=== PATIENT | male | born 1995 | race Caucasian/White ===

== ENCOUNTER 2021-03-02 09:12 | Emergency (ER) | payer OTHER, SELFPAY ==
--- NOTE | ~2021-03-02 | XR_ITS ---
EXAMINATION: XR FINGER, LEFT CLINICAL INFORMATION: Crush injury and laceration COMPARISON: None TECHNIQUE: Three views of the left second finger. FINDINGS: Bone alignment is normal. No fracture or dislocation is seen. There is soft tissue swelling. No radiopaque soft tissue foreign body is seen. There is a small amount of air in the soft tissues adjacent to the distal aspect of the volar proximal phalanx XR/XR finger LT min 2V IMPRESSION: No fracture. Diffuse soft tissue swelling. Small amount of air in the soft tissues adjacent to the proximal phalanx.
[2021-03-02 09:18] VITALS: BP 133/61; PULSE 85; RESP 18; TEMP 36.1; O2SAT 100; BMI 22.8
[2021-03-02] MEDS: Diphth,Pertus(ACell),Tet Adult 0.5 ML SYRINGE IM (09:30)
[2021-03-02] MEDS: Lidocaine HCl 2 % MPF 5 ML VIAL SUBCUT ×2 (09:31→10:37)
--- NOTE | 2021-03-02 11:48 | ED.EXTPRO ---
HPI - Extremity Problem General Chief complaint: Extremity Injury, Upper Stated complaint: lt index finger injury Time Seen by Provider: 03/02/21 09:17 Source: patient Mode of arrival: ambulatory Limitations: no limitations History of Present Illness HPI Narrative: 25-year-old male here with complaints of left index finger after it was crushed by a weight at the gym. The patient tells me he was doing some lifting when the bar was uneven and a heavy weight fell on his left hand. He reports pain and swelling to the left index finger with a laceration. No fevers or chills. No sensation change. Tetanus status unknown Related Data Previous Rx's Medication Instructions Recorded amoxicillin 875 mg-potassium 1 tab PO BID #14 tab 03/02/21 clavulanate 125 mg tablet (Augmentin) ibuprofen 600 mg tablet 600 mg PO Q8H PRN #20 tab 03/02/21 oxycodone 5 mg tablet 5 mg PO Q8H PRN #8 tab 03/02/21 oxycodone 5 mg tablet 5 mg PO Q8H PRN #8 tab 03/02/21 Allergies Allergy/AdvReac Type Severity Reaction Status Date / Time nut - unspecified [NUTS] Allergy Intermediate ANAPHYLAXIS Verified 03/02/21 09:23 Review of Systems Review of Systems: Yes all other systems are reviewed and are negative Constitutional: Constitutional: Reports no additional constitutional complaints, Denies body ache(s), Denies chills, Denies fever(s), Denies headache(s) and Denies weakness Eyes: Eyes: Reports no additional eye complaints and Denies change in vision ENT: Reports system reviewed and no additional complaints, except as documented, Denies dizziness, Denies headache(s), Denies nasal congestion, Denies nasal discharge and Denies neck pain Cardiovascular: Cardiovascular: Reports no additional cardiovascular complaints, Denies chest pain, Denies leg edema and Denies dyspnea Respiratory: Respiratory: Reports no additional respiratory complaints, Denies cough and Denies dyspnea Gastrointestinal: Gastrointestinal: Reports no additional gastrointestinal complaints, Denies abdominal pain, Denies diarrhea, Denies nausea and Denies vomiting Genitourinary: Genitourinary: Denies urinary incontinence Musculoskeletal: Musculoskeletal: Reports no additional musculoskeletal complaints, Denies back pain, Reports arthralgias, Denies joint swelling, Denies neck pain, Denies numbness and Denies tingling Integumentary/Breasts: Skin/Breast: Reports system reviewed and no additional complaints, except as docu and Denies rash Comments: Laceration Neurologic: Reports system reviewed and no additional complaints, except as documented, Denies Abnormal speech present, Denies dizziness, Denies headache(s), Denies numbness, Denies tingling and Denies weakness PMFSH Past Medical History Attestation statement: The following information was validated with the patient. Source: old records reviewed and nursing notes reviewed Medical History No known health problems Social History Social History Advance Directives: No Advance Directives Information Provided: No Physical Exam Vital Signs: Vital Signs: Last Vital Signs Temp 97 F 03/02/21 09:18 Pulse 85 03/02/21 09:18 Resp 18 03/02/21 09:18 BP 133/61 03/02/21 09:18 Pulse Ox 100 03/02/21 09:18 Body Mass Index 22.8 Const: General: cooperative, healthy appearing, comfortable and no acute distress Orientation/consciousness: patient oriented x3 Limitations: no limitations HENMT: Head: Yes normal to inspection Ears: hearing grossly normal bilaterally General nose exam: Normal external nose present Face and sinus: Yes normal facial exam Mouth: Normal oral and palatal mucosa present Throat: Yes posterior oropharynx normal Eyes: General: appearance normal, both eyes and all related structures Pupils: Equal, round and reactive pupils present Neck: Neck: Yes normal visual inspection Chest: Chest palpation & inspection: normal inspection of the chest Resp: Effort & Inspection: normal respiratory effort Auscultation: clear to auscultation bilaterally Cardio: Rate: regular rate Rhythm: regular rhythm Peripheral pulses: Peripheral pulses 2+ throughout GI: Inspection: Yes normal to inspection Palpation (GI): Soft to palpation and nontender Auscultation: normal bowel sounds Back/Spine/Pelvis: Thoracic/Lumbar Spine: thoracic and lumbar spine normal to inspection Skin: General skin exam: no rashes or lesions noted Neuro: General: patient oriented x3, no focal motor deficits and normal sensation to monofilament Cranial nerves: Yes Equal, round and reactive pupils present Cognition (Neuro): normal cognition Speech: No Abnormal speech present Gait exam (Neuro): Normal gait present Motor exam (neuro): 5/5 motor strength present throughout Extrem: Other: To the left index finger there are 2 lacerations 1 on the volar aspect and 1 on the distal dorsal aspect of the digit. The patient is able to flex and extend the digit without any difficulty. Sensation is intact distally. Nail is spared. Normal cap refill. There is also a skin avulsion to the dorsal aspect of the digit over the PIP Volar laceration -4cm Dorsal laceration-2m General: Yes normal to inspection Course Course Course Narrative: Crush injury to left index finger at the gym. There are several lacerations noted to the digit. X-ray show no bony abnormality The wound was extensively irrigated with Betadine. It was additionally irrigated with normal saline and hydrogen peroxide mixture. A digital block was done prior to x-ray and was repeated prior to discharge home. The wound was explored and the deeper structures are intact. The patient is able to flex and extend the finger independently so less likely tendon involvement. Due to the extensive wound the patient will be placed on prophylactic antibiotics. His tetanus was updated. I did speak to Monet MARIA from orthopedics. Recommended patient follow-up with them in the office next week. Dressing and finger splint placed for comfort MDM - Extremity (Nontraumatic) Medical Records Attestation: I reviewed the patient's medical records. Lab Data Attestation: I reviewed the patient's lab results. Imaging Data left finger xray: Attestation: I personally reviewed and interpreted this imaging study as follows: Radiologist's impression: [place] [id number] XRay Report Signed Patient: Hebert Fuentes MR#: [id number] : 1995 Acct:[id number] Age/Sex: 25 / M ADM Date: 03/02/21 Loc: HO.ED Attending Dr: Ordering Physician: Gloria Díaz NP Date of Service: 03/02/21 Procedure(s): XR finger LT min 2V Accession Number(s): [id number] cc: Gloria Díaz NP~ EXAMINATION: XR FINGER, LEFT CLINICAL INFORMATION: Crush injury and laceration? COMPARISON: None? TECHNIQUE: Three views of the left second finger. FINDINGS: Bone alignment is normal. No fracture or dislocation is seen. There is soft tissue swelling. No radiopaque soft tissue foreign body is seen. There is a small amount of air in the soft tissues adjacent to the distal aspect of the volar proximal phalanx XR/XR finger LT min 2V IMPRESSION: No fracture. Diffuse soft tissue swelling. Small amount of air in the soft tissues adjacent to the proximal phalanx. ? Procedures Procedure Narrative Procedure Narrative: Finger splint left index finger Laceration Laceration 1: Site: hand (Index finger) Side (If applicable): left Size (cm): 4 Description: irregular Depth: simple, single layer Local Anesthetic: lidocaine 2% and other anesthetic (Digital block) Amount of anesthesia used (mL): 6 Pre-repair: wound explored, irrigated extensively and deep structures intact (Mild debridement done) Skin layer closed with: vicryl Size (cm): 5-0 Number of sutures: 11 Technique: simple, interrupted Laceration 2: Site: hand (Index finger) Side (If applicable): left Size (cm): 2 Description: irregular Depth: simple, single layer Local Anesthetic: lidocaine 2% and other anesthetic (Digital block) Amount of anesthesia used (mL): 6 Pre-repair: wound explored, irrigated extensively and deep structures intact (Mild debridement done) Skin layer closed with: vicryl Size (cm): 5-0 Number of sutures: 4 Technique: simple, interrupted Nerve Block Nerve Block 1: Time out performed: No Local Anesthetic: lidocaine 2% Amount of anesthesia used (mL): 6 Side: left Nerve Blocks: digital Procedure Successful: Yes Patient Tolerated Procedure: well Complications: none Additional Comments: Repeated prior to discharge home Total mL of both digital block 6 mL Discharge Plan Discharge Clinical Impression: Laceration of left index finger Patient Disposition: Home, Self-Care Instructions: Finger Laceration (ED) Additional Instructions: leave dressing in place for 24 hrs then remove and wash with soap and water daily Call orthopedics Thursday for follow-up Return for drainage, redness or streaking up the finger or fever >100.4 Prescriptions: New amoxicillin-pot clavulanate [Augmentin] 875-125 mg tablet 1 tab PO BID Qty: 14 RF: 0 ibuprofen 600 mg tablet 600 mg PO Q8H PRN (Reason: pain) Qty: 20 RF: 0 oxycodone 5 mg tablet 5 mg PO Q8H PRN (Reason: pain) Qty: 8 RF: 0 oxycodone 5 mg tablet 5 mg PO Q8H PRN (Reason: pain) Qty: 8 RF: 0 Referrals: George Wilcox MD [Physician] - 2 days Stand Alone Forms: Work/School Release Interventions: ED Discharge Assessment Last Done: 03/02/21 11:32 Discharge Date/Time: 03/02/21 11:33
== END 2021-03-02 11:33 | disposition home or self-care (01) ==
PROVIDERS: Emergency Provider Emergency Medicine Emergency Medical Services
DX: S61.211A Laceration without foreign body of left index finger without damage to nail, initial encounter (principal); S60.512A Abrasion of left hand, initial encounter; M79.642 Pain in left hand; W26.9XXA Contact with unspecified sharp object(s), initial encounter; Y93.B3 Activity, free weights; Y92.39 Other specified sports and athletic area as the place of occurrence of the external cause; Y99.9 Unspecified external cause status; Z79.899 Other long term (current) drug therapy
CPT/HCPCS: 12002; 73140; 90471; 90715; 99283; 99284

== ENCOUNTER → 2021-03-05 14:09 | Outpatient (BNVA) | payer OTHER, SELFPAY | PROVIDERS: Visit Provider Physician Assistant ==

== ENCOUNTER → 2021-03-12 12:27 | Outpatient (BNVA) | payer OTHER, SELFPAY | PROVIDERS: Visit Provider Physician Assistant ==

== ENCOUNTER → 2021-03-19 08:44 | Outpatient (BNVA) | payer OTHER, SELFPAY | PROVIDERS: Visit Provider Physician Assistant ==

== ENCOUNTER → 2021-04-09 11:35 | Outpatient (BNVA) | payer OTHER, SELFPAY | PROVIDERS: Visit Provider Physician Assistant ==

== ENCOUNTER 2021-04-25 10:30 | Outpatient (RCR) | payer OTHER, SELFPAY ==
--- NOTE | 2021-04-01 16:08 | MHC.OT.DC ---
[address] [phone] F: [phone] Occupational Therapy Discharge Note Provider: Monet Otero PA-C Diagnosis: Laceration left index finger Date of Surgery: Date of Evaluation: 03/29/21 Date of Discharge: 03/29/21 Treatments to Date: 1 Cancellations to Date: No Shows to Date: Discharge Status: Improved Function Independent with HEP Discharge Summary: Pt is a 25 yo male 4 weeks s/p left index laceration/crush injury . Today he presents with some jt stiffness and a closing wound with a small opening noted with digit flexion approx the size of a small grain of rice that opens with digit flexion. He is able to demonstrate ROM exercises independently and should regain index mobility when the wound is fully closed He has a follow up appt with Orthopedics on 04/09/21 . Skilled therapy is not needed at this time. [ Electronically Signed By: Kellen Sanders OT CHT CLT Reviewed/agree with student documentation: N/A Therapist: Please Sign and return to therapist, thank you for your referral.
== END 2021-05-14 09:09 | disposition home or self-care (01) ==
LOC: HO.OT 10:30
PROVIDERS: Visit Provider Physician Assistant
DX: S61.211D Laceration without foreign body of left index finger without damage to nail, subsequent encounter (principal)
CPT/HCPCS: 97110; 97140; 97165

== ENCOUNTER → 2021-04-30 12:29 | Outpatient (BNVA) | payer OTHER, SELFPAY | PROVIDERS: Visit Provider Physician Assistant ==